=== PATIENT | male | born 1965 | race Caucasian/White ===

== ENCOUNTER 2018-03-18 08:41 | Day surgery (SDC) ==
[2018-03-18] MEDS ORDERED: LIDOCAINE 1% 20 ML MDV ID STA (09:10)
[2018-03-18] MEDS ORDERED: VERSED ONE (10:36)
[2018-03-18] MEDS ORDERED: DIPRIVAN 20 ML VIAL IVP ONE (10:36)
[2018-03-18 14:38] VITALS: BP 127/91; TEMP 97.6
--- NOTE | 2018-03-19 09:47 | OP ---
INDICATIONS FOR PROCEDURE: 52-year-old gentleman presents for screening colonoscopy exam. He does have a history of colon cancer involving a sister and mother in her 60s. MEDICATIONS: SEE ANESTHESIA NOTES. PROCEDURE: COLONOSCOPY, SCREENING REPORT: The risks, benefits, alternatives and limitations were discussed in detail with the patient. Informed consent was obtained. After adequate sedation was achieved, a digital rectal exam revealed good tone, no masses. The colonoscope was introduced into the rectum and advanced under direct visual guidance to the cecum. The cecum was identified by the appendiceal orifice and IC valve. I then slowly withdrew the scope in a circumferential manner examining the mucosa quite carefully. I looked on the proximal and distal side of folds and flexures as best as possible. I retroflexed the scope in the right colon and left colon to increase visualization. No abnormalities were noted other than small and large mouth diverticulitis scattered throughout the sigmoid. No other abnormalities noted including on retroflex view of the anal canal. The prep was good. The withdrawal time was 7 minutes and 51 seconds. The patient tolerated the procedure well with stable vital signs and pulse oximetry throughout. IMPRESSION: 1. Sigmoid diverticulosis RECOMMENDATIONS: 1. High fiber diet. 2. Office visit as needed. 3. Considering his family history of colon cancer, I recommend a screening examination again in 5 years, sooner if there are signs or symptoms to indicate otherwise. CC: DR. DANIEL FUNK
== END 2018-03-18 11:45 | disposition home or self-care (01) ==
LOC: SURG 08:41
PROVIDERS: ATTEND Internal Medicine Gastroenterology
DX: Z12.11 Encounter for screening for malignant neoplasm of colon (principal); K57.32 Diverticulitis of large intestine without perforation or abscess without bleeding; Z80.0 Family history of malignant neoplasm of digestive organs
CPT/HCPCS: 00812; G0105

== ENCOUNTER 2019-01-05 15:56 | Outpatient (CLI) ==
--- NOTE | 2019-01-06 08:36 | DI ---
EXAM: Right hip two-view HISTORY: Hip pain COMPARISON: None FINDINGS: No fracture or dislocation. Mild to moderate osteoarthritis right hip with joint space neida rowing osteophyte formation. No focal soft tissue abnormality. IMPERSSION: Mild to moderate osteoarthritis right hip.
== END 2019-01-05 15:57 | disposition home or self-care (01) ==
LOC: RAD 15:56
PROVIDERS: ATTEND Internal Medicine
DX: M25.551 Pain in right hip (principal)

== ENCOUNTER 2019-02-02 14:29 | Outpatient (CLI) ==
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
== END 2019-02-02 14:30 | disposition home or self-care (01) ==
LOC: RAD 14:29
PROVIDERS: ATTEND Internal Medicine
DX: S89.91XA Unspecified injury of right lower leg, initial encounter (principal)